=== PATIENT | male | born 1960 | race Caucasian/White ===

== ENCOUNTER → 2022-03-25 | Outpatient (CLI) | payer OTHER | LOC: HEART 5 08:34 | DX: R07.89 Other chest pain (principal); E78.5 Hyperlipidemia, unspecified; R00.2 Palpitations; R06.02 Shortness of breath | CPT/HCPCS: 78452; A9502 ==

== ENCOUNTER → 2022-03-27 | Outpatient (CLI) | payer OTHER | LOC: ECHO 03-26 08:45 | DX: R07.89 Other chest pain (principal); R78.5 Finding of other psychotropic drug in blood; R00.2 Palpitations; R06.02 Shortness of breath; I08.1 Rheumatic disorders of both mitral and tricuspid valves | CPT/HCPCS: ECHO; 93306 ==